=== PATIENT | female | born 2000 | race American Indian/Alaskan Native ===

== ENCOUNTER 2019-07-27 13:04 | Inpatient (IN) | payer MEDICAID ==
[2019-07-27] MEDS ORDERED: MINERAL OIL 30 ML ORAL LIQD PO PRN (13:11)
[2019-07-27] MEDS ORDERED: AMPICILLIN/NS 2 GM/100 ML 2 GM/100 ML BAG IV ONE (13:11)
[2019-07-27] MEDS ORDERED: LIDOCAINE (2%) 20 MG/1 ML VIAL 20 ML MDV INFILTRATI ONE (13:11)
[2019-07-27] MEDS ORDERED: TERBUTALINE 1 MG/1 ML INJ SUB-Q PRN (13:11)
[2019-07-27] MEDS ORDERED: NalbUPHINE 10 MG/1 ML INJ IV PRN (13:11)
[2019-07-27] MEDS ORDERED: ePHEDrine SULFATE 50 MG/1 ML INJ IV PRN (13:11)
[2019-07-27] MEDS ORDERED: ONDANSETRON 4 MG/2 ML INJ IV PRN (13:11)
[2019-07-27] MEDS ORDERED: DINOPROSTONE 10 MG VAG SUPP VG ONE (13:11)
--- NOTE | 2019-07-27 13:25 | History and Physical Report ---
History of Present Illness Date of examination: 07/27/19 (sent from [facility] for IOL) Chief complaint: Phone Note Call from Other Clinic Caller: Dr Porras Call For: Lise Summary of Call: pt has abnl doppler again today He recommends del Pt was [facility] by [facility] I notified L&D He will send his consult report to us Initial call taken by: Lise Spivey [facility], July 27, 2019 11:09 AM History of present illness: EDC Confirmation: 08/14/2019 Gestational Age: 6 4/7 weeks Past History : 1 Term Births: 0 Premature Births: 0 Living Children: 0 Para: 0 Mult. Births: 0 Prev : 0 Prev. attempt? 0 Aborta: 0 Elect. Ab: 0 Spont. Ab: 0 Ectopics: 0 Past Medical History: Negative Past Medical History Past Surgical History: Negative Past Surgical History Family History Summary: Mother (biol.) - Has Family History of Seizure Disorders - Entered On: 12/23/2018 MGM - Has Family History of CVA or Stroke - Entered On: 12/23/2018 Social History: Patient is single Smoking History: Patient has never smoked. 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 Hx of marjiuana use - stopped 1 wk ago (12/14/18) Infection History Hx of STD: none HIV Risk Eval: low risk Hepatitis B Risk Eval: low risk Personal hx. of genital herpes: no Partner hx. of genital herpes: no Rash, Viral, or Febrile illness since last LMP? no Varicella/Chicken Pox Status: Immunized TB Risk: no Genetic History Congenital Heart Defect: Mom: no Dad: no Marleny Disease: Mom: no Dad: no Thalassemia Mom: no Dad: no Neural Tube Defect Mom: no Dad: no Down's Syndrome Mom: no Dad: no Jian-Sachs Mom: no Dad: no Sickle Cell Disease/Trait Mom: no Dad: no Hemophilia Mom: no Dad: no Muscular Dystrophy Mom: no Dad: no Cystic Fibrosis Mom: no Dad: no Carmelo Chorea Mom: no Dad: no Mental Retardation Mom: no Dad: no Fragile X Mom: no Dad: no Other Genetic/Chromosomal Disorder Mom: no Dad: no Child w/other defect Mom: no Dad: no Enviromental Exposures Xray Exposure: no Medication, drug, or alcohol use since LMP: no Chemical/Other Exposure: no Exposure to Cat Liter: no Hx of Parvovirus (Fifth Disease): no Occupational Exposure to Children: none 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 Medications (reviewed today): None Current Allergies (reviewed today): No known allergies Past History Social history: single - Obstetrical History Expected Date of Delivery: 08/14/19 Actual Gestation: 37 Week(s) 3 Day(s) : 1 Para: 0 Hx # Term Pregnancies: 0 Number of Pregnancies: 0 Spontaneous Abortions: 0 Induced : 0 Number of Living Children: 0 Medications and Allergies Active Meds: Active Medications Dinoprostone (Cervidil) 10 mg VG ONCE ONE Stop: 07/27/19 13:12 Ephedrine Sulfate (Ephedrine Sulfate) 10 mg IV Q2M PRN PRN Reason: Hypotension Fentanyl (Sublimaze) 100 mcg IV Q2H PRN PRN Reason: Labor Pain Oxytocin/Sodium Chloride (Pitocin/Ns 20 Unit/1000ml Drip) 20 units in 1,000 mls @ 125 mls/hr IV DIRECT ASTRID Oxytocin/Sodium Chloride (Pitocin/Ns 30 Unit/500ml) 30 units in 500 mls @ 4 mls/hr IV Q30MIN ASTRID; Protocol Lactated Ringer's (Lactated Ringers) 1,000 mls @ 125 mls/hr IV DIRECT ASTRID Ampicillin Sodium (Ampicillin/Ns 1 Gm/50 Ml) 1 gm in 50 mls @ 100 mls/hr IV Q4HR ASTRID; Protocol Ampicillin Sodium (Ampicillin/Ns 2 Gm/100 Ml) 2 gm in 100 mls @ 100 mls/hr IV ONCE ONE; Protocol Stop: 07/27/19 14:10 Lidocaine (Xylocaine 2%) 20 ml INFILTRATI ONCE ONE Stop: 07/27/19 13:12 Mineral Oil (Mineral Oil) 30 ml PO QHS PRN PRN Reason: Constipation Nalbuphine HCl (Nalbuphine) 10 mg IV Q2H PRN PRN Reason: Pain, Moderate (4-6) Ondansetron HCl (Zofran) 4 mg IV Q8H PRN PRN Reason: Nausea And Vomiting Terbutaline Sulfate (Brethine) 0.25 mg SUB-Q ONCE PRN PRN Reason: Hyperstimulation/Hypertonicity - Physical Exam Breasts: Positive: deferred Cardiovascular: Regular rate, Normal S1, Normal S2 Lungs: Positive: Normal air movement Abdomen: Positive: normal appearance, soft, normal bowel sounds. Negative: distention, tenderness Vulva: both: normal Vagina: Positive: normal moisture. Negative: discharge Cervix: Negative: lesion, discharge Uterus: Positive: normal size, normal contour Adnexa: both: normal Anus/Rectum: Positive: normal perianal skin, heme negative. Negative: rectal mass, hemorrhoids Extremities: Positive: normal Deep Tendon Reflex Grade: Normal +2 - Obstetrical FHR: category 1 Uterine Contraction Monitor Mode: External Cervical Dilatation: 0.5 Cervical Effacement Percentage: 50 station: -3 Uterine Contraction Pattern: Absent Uterine Tone Measurement Phase: Resting Results All other labs normal. gbs positive HBsAg Screen Negative Negative *1 RPR Non Reactive Non Reactive *2 Rubella Antibodies, IgG 4.11 index Immune >0.99 *3 Non-immune <0.90 Equivocal 0.90 - 0.99 Immune >0.99 ABO Grouping A *4 Rh Factor Positive *5 Please note: Prior records for this patient's ABO / Rh type are not available for additional verification. Antibody Screen Negative Negative *6 WBC 5.6 x10E3/uL 3.4-10.8 *7 RBC 3.83 x10E6/uL 3.77-5.28 *8 Hemoglobin 11.3 g/dL 11.1-15.9 *9 Hematocrit 35.2 % 34.0-46.6 *10 MCV 92 fL 79-97 *11 MCH 29.5 pg 26.6-33.0 *12 MCHC 32.1 g/dL 31.5-35.7 *13 RDW 13.5 % 12.3-15.4 *14 Platelets 230 x10E3/uL 150-450 *15 Neutrophils 62 % Not Estab. *16 Lymphs 30 % Not Estab. *17 Monocytes 7 % Not Estab. *18 Eos 1 % Not Estab. *19 Basos 0 % Not Estab. *20 ! Immature Cells <No Reported Value> *21 Neutrophils (Absolute) 3.5 x10E3/uL 1.4-7.0 *22 Lymphs (Absolute) 1.7 x10E3/uL 0.7-3.1 *23 Monocytes(Absolute) 0.4 x10E3/uL 0.1-0.9 *24 Eos (Absolute) 0.0 x10E3/uL 0.0-0.4 *25 Baso (Absolute) 0.0 x10E3/uL 0.0-0.2 *26 ! Immature Granulocytes 0 % Not Estab. *27 ! Immature Grans (Abs) 0.0 x10E3/uL 0.0-0.1 *28 ! NRBC <No Reported Value> *29 Hematology Comments: <No Reported Value> *30 Tests: (2) Panel [id number] ([id number]) HIV Screen 4th Generation wRfx Non Reactive Non Reactive *31 Tests: (3) HCV Ab w/Rflx to Verification ([id number]) ! HCV Ab <0.1 s/co ratio 0.0-0.9 *32 Tests: (4) Comment: ([id number]) ! Comment: SPRCS *33 Non reactive HCV antibody screen is consistent with no HCV infection, unless recent infection is suspected or other evidence exists to indicate HCV infection. Tests: (5) Urine Culture, Routine ([id number]) Urine Culture, Routine [A] Final report *34 Tests: (6) Result ([id number]) ! Result 1 [A] ECV *35 Escherichia coli, identified by an automated biochemical system. Greater than 100,000 colony forming units per mL TREATED Assessment and Plan - Patient Problems (1) Group B Streptococcus carrier state affecting Onset Date: ~07/27/19 Current Visit: Yes Status: Acute Plan to address problem: GBS+ Will treat per protocol. When in active labor (2) Maternal care for other known or suspected poor growth, third trimester, fetus 1 Onset Date: ~07/27/19 Current Visit: Yes Status: Acute Plan to address problem: Received a call from Dr Vern MARQUEZ that pt's doppler study was abnormal in their office today and along with the IUGR he recommends delivery. Pt.is 37w3d today. BPP there today was 12/18. Discussed with pt her POC She asked was she going to have a c/s Explained that if baby does not tolerate the labor process, heart decelerations, she may need c/s. Pt voiced understanding. She is GBS+ will tx per protocol. Pt also aware IOL process may take several days. Risks reviewed and poss operative intervention. All questions addressed. aware.
[2019-07-27] MEDS ORDERED: OXYTOCIN 20 UNIT/1000ML DRIP 20 UNITS/1,000 ML BAG IV SCH (14:00)
[2019-07-27] MEDS: LACTATED RINGERS 1,000 ML IV SCH ×2 (14:49→21:38)
[2019-07-27] MEDS: OXYTOCIN DRIP 30 UNITS/500 ML BAG IV SCH (14:51)
[2019-07-27 16:21] LABS: Hematocrit 28.6 % (30.3-42.9); Hemoglobin 9.3 gm/dl (10.1-14.3); Mean Corpuscular HGB Conc 33 % (30-34); Mean Corpuscular Volume 85 fl (79-97); Platelet Count 150 K/mm3 (140-440); Red Blood Count 3.37 M/mm3 (3.65-5.03); Red Cell Distribution Width 14.2 % (13.2-15.2)
[2019-07-27] MEDS: AMPICILLIN/NS 1 GM/50 ML 1 GM/50 ML BAG IV SCH ×2 (18:35→22:13)
[2019-07-27] MEDS: ZOLPIDEM 5 MG TAB PO PRN (23:07)
[2019-07-28] MEDS: AMPICILLIN/NS 1 GM/50 ML 1 GM/50 ML BAG IV SCH ×4 (02:00→23:29)
--- NOTE | 2019-07-28 07:34 | Progress Note ---
Assessment and Plan A: 19 y.o. @ 37+ wks, IOL d/t IUGR P: Cervidil pulled. Will allow pt to eat and shower. After breakfast and shower, will start Pitocin. Subjective - Subjective Date of service: 07/28/19 (Pt doing okay at this time.) Principal diagnosis: 37+ wks, IUGR, IOL per [facility] d/t elevated dopplers Objective - Vital Signs Vital Signs: Vital Signs - 12hr 07/27/19 07/28/19 07/28/19 19:37 00:05 00:07 Temperature 97.8 F Pulse Rate 83 75 Blood Pressure 107/67 116/55 07/28/19 07/28/19 07/28/19 03:37 03:52 07:22 Temperature 97.8 F Pulse Rate 68 68 Blood Pressure 104/53 105/59 - Exam Breasts: deferred Cardiovascular: Regular rate, Normal S1, Normal S2 Lungs: Clear to auscultation Abdomen: Present: normal appearance, soft Vulva: both: normal Uterus: Present: normal FHR: category 1 Uterine Contraction Monitor Mode: External Cervical Dilatation: 1 (Per RN) Cervical Effacement Percentage: 40 station: -3 Uterine Contraction Pattern: Regular Uterine Tone Measurement Phase: Resting Uterine Contraction Intensity: Moderate Extremities: normal Deep Tendon Reflex Grade: Normal +2 - Labs Labs: Abnormal Labs 07/27/19 15:58 RBC 3.37 L Hgb 9.3 L Hct 28.6 L Laboratory Results - last 24 hr 07/27/19 07/27/19 15:58 16:00 WBC 8.2 RBC 3.37 L Hgb 9.3 L Hct 28.6 L MCV 85 MCH 28 MCHC 33 RDW 14.2 Plt Count 150 Blood Type A POSITIVE Antibody Screen Negative
[2019-07-28] MEDS: fentaNYL 100 MCG/2 ML INJ IV PRN ×3 (13:49→21:10)
--- NOTE | 2019-07-28 15:00 | Event Note ---
Date: 07/28/19 (Pt very upset about IOL process) Pt is very upset about IOL. States that no one has spoken with her regarding IOL and why. She wants to be off EFM, and is yelling, screaming, and cursing at at nurse because she states that she is hungry. The plan this morning was to let her eat breakfast, shower, and then start Pitocin. Pt refused to eat the food because she states that "it was disgusting", but did not tell nurse that she did not want breakfast. Pitocin was then started, and the pt now states she would like to eat. Spoke with the patient regarding her IUGR diagnosis and why [facility] recommended IOL. Also explained that IOL can take a few days. Cervical exam at this time . Spoke with Dr. Quintero regarding pt and made a plan. Plan is to let pt eat dinner,and insert cervidil after eating dinner. Pitocin has been infusing since this AM and will be discontinued at this time. Pt aware and agrees to plan.
[2019-07-28] MEDS ORDERED: DINOPROSTONE 10 MG VAG SUPP VG ONE (17:24)
--- NOTE | 2019-07-28 18:29 | Progress Note ---
Assessment and Plan 19 y.o. @ 37+ wks here for IOL d/t IUGR and elevated Dopplers at [facility] visit. Cervical exam /. Cervidil has been inserted. Plan of care for the night was explained to the pt. She agrees and voices no additional questions or concerns at this time. Subjective - Subjective Date of service: 07/28/19 (Pt is a lot calmer at this time. ) Principal diagnosis: 37+ wks, IUGR, IOL per [facility] d/t elevated dopplers Patient reports: contractions Objective - Vital Signs Vital Signs: Vital Signs - 12hr 07/28/19 07/28/19 07/28/19 07:22 08:55 09:28 Temperature 98.7 F Pulse Rate 68 78 Blood Pressure 105/59 100/55 07/28/19 07/28/19 07/28/19 09:58 11:00 15:58 Temperature 97.8 F Pulse Rate 72 65 Blood Pressure 101/60 88/48 07/28/19 07/28/19 07/28/19 16:04 16:06 17:06 Temperature 97.5 F L Pulse Rate 63 70 Blood Pressure 113/71 102/61 07/28/19 18:09 Temperature Pulse Rate 85 Blood Pressure 122/66 - Exam Breasts: deferred Cardiovascular: Regular rate Lungs: Normal air movement Abdomen: Present: normal appearance Vulva: both: normal Uterus: Present: normal FHR: auscultation normal Uterine Contraction Monitor Mode: External Cervical Dilatation: 1 Cervical Effacement Percentage: 40 (Firm) station: -3 Uterine Contraction Pattern: Irregular Uterine Tone Measurement Phase: Resting Uterine Contraction Intensity: Moderate Extremities: normal - Labs Labs: Abnormal Labs 07/27/19 15:58 RBC 3.37 L Hgb 9.3 L Hct 28.6 L
[2019-07-28] MEDS: ZOLPIDEM 5 MG TAB PO PRN (20:36)
--- NOTE | 2019-07-28 21:24 | Event Note ---
Date: 07/28/19 (Pt very uncomfortable with ctxs. ) In room with RN. Pt standing by bedside crying stating that her ctxs are too painful. Ctxs noted to be every 1 -2 minutes apart. Cervical exam attempted and pt closing legs on provider. Pain medication given for ctx pain. Cervical exam unchanged. Will start Pitocin. Updated Dr. Quintero on pt status.
[2019-07-29] MEDS: OXYTOCIN DRIP 30 UNITS/500 ML BAG IV SCH (02:36)
[2019-07-29] MEDS: AMPICILLIN/NS 1 GM/50 ML 1 GM/50 ML BAG IV SCH ×2 (03:31→07:39)
[2019-07-29] MEDS: LACTATED RINGERS 1,000 ML IV SCH (07:39)
--- NOTE | 2019-07-29 08:04 | Progress Note ---
Assessment and Plan patient on her third day of induction, she verbalizes being tired of the process and not really understanding why if it was an emergency for her to be in the hospital why it is not an emergency for her to be delivered. discussed IUGR and doppler flow, addressed all pt's questions. pt also c/o being alone as her family can not be here to stay with her. Advised pt the plan for today is to stop pitocin, allow breakfast and AM care then to resume pitocin. Pt has questions re: c/s. discussed risks associated with major abd surgery - bleeding requiring transfusion, injury to surrounding organs, always needing c/s for future pregnancies. Patient called sister to discuss. she is uncertain at this time. advised pt to shower and then to let nurse know - if she chooses to have a c/s then she needs to not eat breakfast. All questions addressed. - Patient Problems (1) 37 or more weeks gestation of Current Visit: Yes Status: Acute (2) Group B Streptococcus carrier state affecting Onset Date: ~07/27/19 Current Visit: Yes Status: Acute Plan to address problem: Antibiotic for GBS in active labor (3) Maternal care for other known or suspected poor growth, third trimester, fetus 1 Onset Date: ~07/27/19 Current Visit: Yes Status: Acute Plan to address problem: cont efm/toco with exception of AM care and bathroom breaks Subjective - Subjective Date of service: 07/29/19 Principal diagnosis: 37+5 wks, IUGR, IOL per [facility] d/t elevated dopplers Patient reports: movement normal, contractions (5/10), no loss of fluid, no vaginal bleeding Objective - Vital Signs Vital Signs: Vital Signs - 12hr 07/28/19 07/28/19 07/28/19 22:32 22:33 22:37 Temperature Pulse Rate 71 77 74 Respiratory Rate Blood Pressure 87/50 88/63 O2 Sat by Pulse 81 L 100 Oximetry 07/28/19 07/28/19 07/28/19 22:42 22:47 22:52 Temperature Pulse Rate 83 77 94 H Respiratory Rate Blood Pressure O2 Sat by Pulse 98 98 100 Oximetry 07/28/19 07/28/19 07/28/19 22:57 23:02 23:06 Temperature Pulse Rate 84 76 76 Respiratory Rate Blood Pressure 101/59 O2 Sat by Pulse 99 99 Oximetry 07/28/19 07/28/19 07/28/19 23:07 23:12 23:17 Temperature Pulse Rate 85 91 H 78 Respiratory Rate Blood Pressure O2 Sat by Pulse 98 98 99 Oximetry 07/28/19 07/28/19 07/28/19 23:22 23:27 23:32 Temperature Pulse Rate 87 78 71 Respiratory Rate Blood Pressure O2 Sat by Pulse 99 100 99 Oximetry 07/28/19 07/28/19 07/28/19 23:37 23:38 23:42 Temperature Pulse Rate 68 76 83 Respiratory Rate Blood Pressure O2 Sat by Pulse 100 88 99 Oximetry 07/28/19 07/28/19 07/29/19 23:47 23:52 00:02 Temperature Pulse Rate 74 69 72 Respiratory Rate Blood Pressure O2 Sat by Pulse 100 100 99 Oximetry 07/29/19 07/29/19 07/29/19 00:07 00:12 00:17 Temperature Pulse Rate 76 78 71 Respiratory Rate Blood Pressure 96/52 O2 Sat by Pulse 98 98 98 Oximetry 07/29/19 07/29/19 07/29/19 00:22 00:27 00:32 Temperature Pulse Rate 65 75 70 Respiratory Rate Blood Pressure O2 Sat by Pulse 99 98 99 Oximetry 07/29/19 07/29/19 07/29/19 00:37 00:42 00:47 Temperature Pulse Rate 71 76 72 Respiratory Rate Blood Pressure O2 Sat by Pulse 99 99 100 Oximetry 07/29/19 07/29/19 07/29/19 00:52 00:57 01:02 Temperature Pulse Rate 77 74 72 Respiratory Rate Blood Pressure O2 Sat by Pulse 99 98 99 Oximetry 07/29/19 07/29/19 07/29/19 01:07 01:12 01:17 Temperature Pulse Rate 74 79 72 Respiratory Rate Blood Pressure 96/52 O2 Sat by Pulse 98 99 99 Oximetry 07/29/19 07/29/19 07/29/19 01:22 01:38 01:43 Temperature Pulse Rate 77 88 70 Respiratory Rate Blood Pressure O2 Sat by Pulse 98 99 99 Oximetry 07/29/19 07/29/19 07/29/19 01:48 01:53 01:58 Temperature Pulse Rate 76 65 67 Respiratory Rate Blood Pressure O2 Sat by Pulse 99 100 99 Oximetry 07/29/19 07/29/19 07/29/19 02:01 02:03 02:08 Temperature Pulse Rate 87 72 76 Respiratory Rate Blood Pressure O2 Sat by Pulse 32 L 99 98 Oximetry 07/29/19 07/29/19 07/29/19 02:13 02:18 02:23 Temperature Pulse Rate 67 84 84 Respiratory Rate Blood Pressure O2 Sat by Pulse 99 98 97 Oximetry 07/29/19 07/29/19 07/29/19 02:28 02:33 02:38 Temperature Pulse Rate 86 73 75 Respiratory Rate Blood Pressure O2 Sat by Pulse 97 100 99 Oximetry 07/29/19 07/29/19 07/29/19 02:43 02:48 02:53 Temperature Pulse Rate 66 64 70 Respiratory Rate Blood Pressure O2 Sat by Pulse 99 100 99 Oximetry 07/29/19 07/29/19 07/29/19 02:58 03:03 03:08 Temperature Pulse Rate 70 78 71 Respiratory Rate Blood Pressure O2 Sat by Pulse 99 98 99 Oximetry 07/29/19 07/29/19 07/29/19 03:13 03:18 03:23 Temperature Pulse Rate 74 84 69 Respiratory Rate Blood Pressure O2 Sat by Pulse 99 100 100 Oximetry 07/29/19 07/29/19 07/29/19 06:10 06:15 06:20 Temperature Pulse Rate 63 76 61 Respiratory Rate Blood Pressure O2 Sat by Pulse 98 99 99 Oximetry 07/29/19 07/29/19 07/29/19 06:25 06:30 06:35 Temperature Pulse Rate 66 76 65 Respiratory Rate Blood Pressure O2 Sat by Pulse 99 99 98 Oximetry 07/29/19 07/29/19 07/29/19 06:40 06:45 06:50 Temperature Pulse Rate 69 77 58 L Respiratory Rate Blood Pressure O2 Sat by Pulse 100 99 100 Oximetry 07/29/19 07/29/19 07/29/19 06:55 07:00 07:02 Temperature Pulse Rate 57 L 70 60 Respiratory Rate Blood Pressure O2 Sat by Pulse 100 100 92 Oximetry 07/29/19 07/29/19 07/29/19 07:05 07:09 07:11 Temperature Pulse Rate 65 140 H 76 Respiratory Rate Blood Pressure O2 Sat by Pulse 100 79 L 93 Oximetry 07/29/19 07:15 Temperature 97.3 F L Pulse Rate 64 Respiratory 18 Rate Blood Pressure 110/55 O2 Sat by Pulse Oximetry - Exam Breasts: normal Cardiovascular: Regular rate Lungs: Clear to auscultation, Normal air movement Abdomen: Present: normal appearance, soft Vulva: both: normal Uterus: Present: normal FHR: auscultation normal, category 1 Uterine Contraction Monitor Mode: External Cervical Dilatation: 1 Cervical Effacement Percentage: 50 station: -1 Uterine Contraction Frequency (min): 2-4 Uterine Contraction Duration: 60 Uterine Contraction Pattern: Regular Uterine Tone Measurement Phase: Contraction Uterine Contraction Intensity: Mild Extremities: normal Deep Tendon Reflex Grade: Normal +2 - Labs Labs: Abnormal Labs 07/27/19 15:58 RBC 3.37 L Hgb 9.3 L Hct 28.6 L
--- NOTE | 2019-07-29 11:16 | Event Note ---
Date: 07/29/19 received call from nurse that patient is requesting c/s. she ate breakfast before making her decision. instructed nurse to make patient NPO. dr. calix notified.
--- NOTE | 2019-07-29 13:12 | Event Note ---
Date: 07/29/19 Patient expresses her frustration being in the hospital and being alone and complained about the pain and length of the induction process. Discussed with the patient the reason for labor induction as an safety of a vaginal delivery versus a delivery. Discussed with the patient the nature of serial induction. Questions answered. Discussed the risks of and. indications for operative intervention. Also explained to the patient that are normal process of cervical ripening and then induction with Pitocin which has not been done wit h her due to her complaints of pain and refusing the Pitocin. Patient and her sister informed the risks of the surgery include bleeding possibly bleeding heavy enough to require blood transfusion, infection possible damage to bowel bladder or ureter. Also discussed the recovery process would need to pain pain relief from the surgery. Also discussed the the prevailing practice of not doing deliveries. All questions answered. Patient states will discuss with the sister and make a decision.
[2019-07-29] MEDS ORDERED: BICITRA ORAL LIQD 30ML PO SCH (13:23)
[2019-07-29] MEDS ORDERED: METOCLOPRAMIDE 10 MG/2 ML INJ IV SCH (13:23)
[2019-07-29] MEDS ORDERED: FAMOTIDINE 20 MG/2 ML INJ IV SCH (13:23)
[2019-07-29] MEDS ORDERED: OXYTOCIN 20 UNIT/1000ML DRIP 20 UNITS/1,000 ML BAG IV SCH ×2 (14:00→21:06)
[2019-07-29] MEDS ORDERED: ceFAZolin/Water 2 GM/20 ML 2 GM/20 ML SYRINGE IV NR (14:00)
[2019-07-29] MEDS ORDERED: LACTATED RINGERS 1,000 ML IV SCH (14:00)
--- NOTE | 2019-07-29 14:43 | Anesthesia Consultation ---
Anesthesia Consult and Med Hx Date of service: 07/29/19 - Airway Anesthetic Teeth Evaluation: Good ROM Head & Neck: Adequate Mental/Hyoid Distance: Adequate Mallampati Class: Class II Intubation Access Assessment: Probably Good - Pulmonary Exam CTA: Yes - Cardiac Exam Cardiac Exam: RRR - Pre-Operative Health Status ASA Pre-Surgery Classification: ASA2 Proposed Anesthetic Plan: Spinal - Pulmonary Hx Asthma: No COPD: No Hx Pneumonia: No - Cardiovascular System Hx Hypertension: No - Central Nervous System Hx Seizures: No Hx Psychiatric Problems: No - Endocrine Hx Renal Disease: No Hx End Stage Renal Disease: No Hx Hypothyroidism: No Hx Hyperthyroidism: No - Hematic Hx Anemia: No Hx Sickle Cell Disease: No - Other Systems Hx Alcohol Use: No
--- NOTE | 2019-07-29 14:43 | Anesthesia Day of Surgery ---
Anesthesia Day of Surgery - Day of Surgery Patient Examined: Yes Patient H&P Reviewed: Yes Patient is NPO: Yes
[2019-07-29] MEDS ORDERED: ceFAZolin/STERILE WATER 2 GM/20 ML SYRINGE IV ONE (16:33)
[2019-07-29] MEDS ORDERED: SODIUM CHLORIDE 0.9% IRR 1,500 ML BOTTLE IR ONE (16:38)
[2019-07-29] MEDS ORDERED: WATER FOR IRRIG STERILE 1,500 ML BOTTLE IR ONE (16:38)
[2019-07-29] MEDS ORDERED: PHENYLEPHRINE/NS 1,000 MCG/10 ML SYRINGE (OR USE) IV ONE (16:44)
[2019-07-29] MEDS ORDERED: dexAMETHasone 20 MG/5 ML VIAL ONE (16:44)
[2019-07-29] MEDS ORDERED: LACTATED RINGERS 1,000 ML ONE (16:44)
[2019-07-29] MEDS ORDERED: ONDANSETRON 4 MG/2 ML INJ ONE (16:44)
[2019-07-29] MEDS ORDERED: OXYTOCIN 10 UNIT/1 ML INJ ONE (16:44)
[2019-07-29] MEDS ORDERED: DEXMEDETOMIDINE 200 MCG/2 ML VIAL IV ONE (16:44)
[2019-07-29] MEDS ORDERED: BUPIVACAINE/PF (0.5%) 5 MG/1 ML 30 ML VIAL INFILTRATI ONE (16:44)
--- NOTE | 2019-07-29 17:56 | Post Anesthesia Evaluation ---
- Post Anesthesia Evaluation Patient Participated: Yes Airway Patent: Yes Stable Respiratory Function: Yes Nausea/Vomiting: No Temp > 96.8F: Yes Pain Manageable: Yes Adequeate Hydration: Yes Anesthesia Complications: No Block Receding Appropriately: Yes
--- NOTE | 2019-07-29 18:14 | Operative Report ---
Operative Report Operative Report: Date of procedure: July 29, 2019 Pre-operative diagnosis: Intrauterine at 37 weeks with intrauterine growth retardation. Patient elective primary section versus continue labor induction Post-operative diagnosis: Same Procedure name(s): Primary low transverse section Surgeon: Erasmo Posey MD Shot Coat Tender: BINDU Anesthesia: Spinal EBL: 500 cc Complications: None Findings: Normal uterus tubes and ovaries bilaterally. Female weight 5 pounds 10 ounces Apgars 8 at 1 minute and 9 at 5 minutes Specimen(s): None Indications: Patient had decided to move forward with a primary section at the been counseled on the risks of the surgery and the benefits of continue labor induction. Procedure: The patient was brought to the operating room. Her spinal was placed without any complications. She was then placed in left lateral tilt. Prepped and draped in the usual sterile manner. After testing for adequate anesthesia level, a Pfannenstiel incision was made. This incision was taken down to the fascia. The fascia was then nicked in the midline. This incision was extended out laterally with Raymundo scissors. The fascia was then sharply and bluntly from the underlying rectus muscles. The rectus muscles were bluntly and sharply . The peritoneum was then entered with the mill operator head's fingers. This incision was spread vertically with care not to damage the bladder below. The Toby self-retaining tractor was then placed without any difficulty. The bladder flap was then formed sharply and bluntly with Metzenbaum scissors. A transverse incision was made in lower uterine segment. This incision was extended laterally with the operators fingers. The amniotic sac was then entered bluntly with the mill operator head's fingers. The was delivered from the vertex position. Bulb suction on the mother's abdomen. Cord was double clamped and cut. The infant was then passed to the nursery personnel who were in attendance. The above scores were given by the nursery personnel. The placenta was then bluntly removed. The uterus was then externalized and wiped clean the remaining products. The uterine incision was closed in layers. The first incision was closed in a locking manner using 0 Vicryl. This was followed by imbricating stitch also with 0 Vicryl. This closure was hemostatic. The bladder flap was copiously irrigated and found to be hemostatic. The pelvis was copiously irrigated and found to be hemostatic. The uterus was then placed back to the patient's abdomen. Surgicel was placed along the uterine incision. The retractors were removed. The rectus muscles were inspected and found to be hemostatic. The fascia was then closed in a running manner using 0 Vicryl. This incision was hemostatic irrigation Bovie. The skin was reapproximated with 4-0 Vicryl subcuticularly. The patient tolerated procedure well. Her urine was clear. The was admitted to the well baby nursery. The patient was accompanied to recovery room in good condition. Instrument count correct times 3.
[2019-07-29] MEDS ORDERED: LANOLIN/ZINC/DIMETHICONE (LANSINOH) 7 GM TP PRN (21:06)
[2019-07-29] MEDS ORDERED: D5W/LACTATED RINGERS 1,000 ML IV SCH (21:06)
[2019-07-29] MEDS ORDERED: NALOXONE 0.4 MG/1 ML INJ IV PRN (21:06)
[2019-07-29] MEDS ORDERED: WITCH HAZEL/ GLYCERIN PAD TP PRN (21:06)
[2019-07-29] MEDS: ceFAZolin/NS 1 GM/50 ML 1 GM/50 ML BAG IV SCH (23:51)
[2019-07-29] MEDS: KETOROLAC 30 MG/1 ML INJ IV SCH (23:51)
[2019-07-30] MEDS: KETOROLAC 30 MG/1 ML INJ IV SCH ×4 (06:04→18:46)
[2019-07-30 07:16] LABS: Hematocrit 26.7 % (30.3-42.9); Hemoglobin 8.6 gm/dl (10.1-14.3)
--- NOTE | 2019-07-30 08:16 | Progress Note ---
Assessment and Plan Pt resting in bed with no visible s/s of distress. Pain well managed with pain medication. VSSAF. HR in 50's. Denies SOB, chest pain, lightheadedness, palpitations, or blurry vision. Has not ambulated out of bed or self-voided since delivery, but plans to attempt to this AM. Post-op H/H 01/05. Drop r/t blood loss during delivery. Incision clean, dry, and intact open to air. Fundus firm at umbilicus. Light vaginal bleeding. + flatus. Breast and bottle feeding. Reports baby is not latching to breasts. Desires LARC but unsure which type. P: Continue PP pathway. - Patient Problems (1) delivery delivered Current Visit: Yes Status: Acute Subjective - Subjective Date of service: 07/30/19 Principal diagnosis: 12 hrs s/p elective primary C/S following IOL for IUGR and elevated doppler Patient reports: appetite normal, voiding normally, pain well controlled, flatus, ambulating normally [place]: doing well Objective - Vital Signs Latest vital signs: Vital Signs Temp Pulse Resp BP BP Pulse Ox 07/30/19 06:34 18 07/30/19 06:04 18 07/30/19 06:03 98.1 F 57 L 18 125/77 100 07/30/19 01:23 97.7 F 59 L 18 117/66 99 07/30/19 00:21 18 07/29/19 23:51 18 07/29/19 20:26 52 L 16 130/83 100 07/29/19 19:00 97.8 F 56 L 19 123/64 99 07/29/19 18:15 57 L 18 118/76 100 07/29/19 18:00 53 L 19 122/84 100 07/29/19 17:45 50 L 14 120/72 100 07/29/19 17:40 49 L 15 105/75 100 07/29/19 17:35 52 L 14 110/53 99 07/29/19 17:30 59 L 12 115/49 99 07/29/19 17:25 97.4 F L 60 16 102/58 98 07/29/19 15:53 73 99 07/29/19 15:48 60 100 07/29/19 15:43 68 100 07/29/19 15:39 92 07/29/19 15:38 69 99 07/29/19 15:33 65 0 L 07/29/19 15:31 98.0 F 63 18 116/67 116/67 07/29/19 13:42 63 98/57 07/29/19 13:41 97.8 F 63 18 Intake and Output 07/29/19 07/30/19 07/30/19 22:59 06:59 14:59 Intake Total 600 680 Output Total 450 1200 Balance 150 -520 Intake: IV 600 Oral 480 Intake, Free Water 200 Output: Urine 450 1200 Indwelling Catheter 1200 Other: Total, Intake Amount 480 Total, Output Amount 400 Estimated Blood Loss 500 - Exam Lungs: Present: Normal air movement Abdomen: Present: normal appearance, soft Uterus: Present: normal, firm, fundal height at umbilicus Extremities: Present: normal Deep Tendon Reflex Grade: Normal +2 Incision: Present: normal, dry, intact - Labs Labs: Abnormal lab results 07/30/19 Range/Units 07:05 Hgb 8.6 L (10.1-14.3) gm/dl Hct 26.7 L (30.3-42.9) %
[2019-07-30] MEDS: ceFAZolin/NS 1 GM/50 ML 1 GM/50 ML BAG IV SCH (10:33)
[2019-07-30] MEDS: PRENATAL VIT27-FE FUMARATE-FOLIC ACID VIT TAB PO SCH (10:34)
[2019-07-30] MEDS: FERROUS SULFATE 325 MG TAB PO SCH (10:34)
[2019-07-30] MEDS: HYDROcodone/ACETAMINOPHEN 5-325 MG TAB PO PRN ×2 (12:59→18:47)
[2019-07-30] MEDS: IBUPROFEN 800 MG TAB PO PRN ×2 (16:08→22:34)
[2019-07-31] MEDS: HYDROcodone/ACETAMINOPHEN 5-325 MG TAB PO PRN ×2 (00:10→09:42)
[2019-07-31] MEDS: IBUPROFEN 800 MG TAB PO PRN ×2 (05:45→14:10)
--- NOTE | 2019-07-31 08:27 | Discharge Summary ---
Providers - Providers Date of Admission: 07/27/19 13:05 Date of discharge: 07/31/19 (desires d/c home) Attending physician: PRATIK MARTINEZ 07/29/19 21:06 Consult to Outside Machinist [CONS] Routine Reason For Exam: Primary care physician: PRATIK MARTINEZ Hospitalization Reason for admission: IOL - IUGR with abnormal doppler studies Condition: Good Pertinent studies: postop H&H 8.6/26.7, asymptomatic anemia from acute blood loss Procedures: elective primary c/s Hospital course: uncomplicated c/s and postop course Disposition: DC-01 TO HOME OR SELFCARE - Discharge Diagnoses (1) delivery delivered Status: Acute Core Measure Documentation - Palliative Care Palliative Care/ Comfort Measures: Not Applicable - Core Measures Any of the following diagnoses?: none Exam - Constitutional Vitals: Temp Pulse Resp BP Pulse Ox 98.6 F 72 20 109/54 100 07/31/19 00:30 07/31/19 00:30 07/31/19 05:45 07/31/19 00:30 07/30/19 16:42 General appearance: Present: no acute distress, well-nourished - EENT Eyes: Present: PERRL ENT: hearing intact, clear oral mucosa - Neck Neck: Present: supple, normal ROM - Respiratory Respiratory effort: normal Respiratory: bilateral: CTA - Cardiovascular Rhythm: regular Heart Sounds: Present: S1 & S2. Absent: rub, click - Extremities Extremities: No edema Peripheral Pulses: within normal limits - Abdominal General gastrointestinal: Present: soft, non-tender, non-distended, normal bowel sounds Female genitourinary: Present: normal - Integumentary Integumentary: Present: clear, warm, dry - Musculoskeletal Musculoskeletal: gait normal, strength equal bilaterally - Psychiatric Psychiatric: appropriate mood/affect, intact judgment & insight - Neurologic Neurologic: CNII-XII intact, moves all extremities - Additional findings Additional findings: incision D&I, lochia scant, fundus firm Plan Activity: no restrictions Diet: regular Wound: open to air, keep clean and dry Care Plan Goals: Call Office to schedule appointment Call your doctor immediately for: * Fever > 100.5 * Heavy vaginal bleeding ( >1 pad per hour) * Severe persistent headache * Shortness of breath * Reddened, hot, painful area to leg or breast * Drainage or odor from incision. * Keep incision clean and dry at all times and follow doctor's instructions regarding bathing/showering Follow up with: PRATIK MARTINEZ MD [Primary Care Provider] - 7 Days (Congratulations! Please call [phone] to schedule incision check in 1 week. Call for any questions or concerns.) Forms: [facility] Discharge Summary Prescriptions: Ferrous Sulfate [Feosol 325 MG tab] 325 mg PO BID #60 tablet Ibuprofen [Motrin 800 MG tab] 800 mg PO Q6H PRN #30 tablet PRN Reason: Pain oxyCODONE /ACETAMINOPHEN [Percocet 5/325 mg] 1 - 2 tab PO Q6HR PRN #20 tablet PRN Reason: Pain, Moderate
[2019-07-31] MEDS: PRENATAL VIT27-FE FUMARATE-FOLIC ACID VIT TAB PO SCH (09:39)
[2019-07-31] MEDS: FERROUS SULFATE 325 MG TAB PO SCH (09:39)
[2019-07-31 13:01] VITALS: BP 122/59
== END 2019-07-31 16:01 | disposition home or self-care (01) | DRG 765 ==
LOC: TRG 13:04 → LD 13:05 → OB 07-29 18:59
PROVIDERS: ADMIT Obstetrics & Gynecology; ATTEND Obstetrics & Gynecology
PROC: 10D00Z1 Extraction of Products of Conception, Low, Open Approach (ICD-10-PCS; principal; 2019-07-29)
PROC: 3E0R3BZ Introduction of Anesthetic Agent into Spinal Canal, Percutaneous Approach (ICD-10-PCS; 2019-07-29)
PROC: 00HU33Z Insertion of Infusion Device into Spinal Canal, Percutaneous Approach (ICD-10-PCS; 2019-07-29)
DX: O36.5990 Maternal care for other known or suspected poor fetal growth, unspecified trimester, not applicable or unspecified (principal); D62 Acute posthemorrhagic anemia; Z37.0 Single live birth; Z3A.37 37 weeks gestation of pregnancy; O90.81 Anemia of the puerperium; O99.824 Streptococcus B carrier state complicating childbirth
CPT/HCPCS: 36415; 59200; 85014; 85018; 85027; 86850; 86900; 86901; G0378; C1765; J0290; J0690; J1100; J1885; J2370; J2405; J2590; J2765; J3010; J3490; J7120; J7121